=== PATIENT | female | born 1940 | race Caucasian/White ===

== ENCOUNTER → 2016-09-10 | Outpatient (CLI) | payer MEDICARE, BC ==
[~2016-09-10] MED LIST: CENTCHW3 PO; CITRTAB8 PO; DENO60P SQ; MACR100C3 PO; MAGN500T5 PO; OMEGCAP PO; SIMV20TA PO; SIMV5TAB32 PO; ZOCO5TAB PO; ZOFR4TAB3 SL
== END ==
LOC: PLAB 12:08
PROVIDERS: ATTEND Internal Medicine
DX: M85.9 Disorder of bone density and structure, unspecified (principal)
CPT/HCPCS: 36415; 82310

== ENCOUNTER 2016-09-26 21:39 | Emergency (ER) | payer MEDICARE, BC ==
[~2016-09-26] VITALS: Ht 157.5 cm; Wt 60.0 kg
[~2016-09-26 21:39] MED LIST changes: -CENTCHW3 PO; -DENO60P SQ; -MACR100C3 PO; -MAGN500T5 PO; -OMEGCAP PO; -SIMV20TA PO; -ZOCO5TAB PO
[2016-09-26 21:45] VITALS: BP 147/67; PULSE 77; RESP 18; TEMP 98; O2SAT 99
[2016-09-26] MEDS ORDERED: SODIUM CHLOR 0.9% 1000 ML INJ 1,000 ML IV ONE (21:50)
[2016-09-26] MEDS ORDERED: ZOCO5TAB PO (21:51)
[2016-09-26] MEDS ORDERED: CITRTAB8 PO (21:51)
[2016-09-26 21:54] VITALS: RESP 18; O2SAT 97
--- NOTE | 2016-09-26 21:58 | PD ---
HPI Chief Complaint: Medical Clearance Time Seen by Provider: 21:50 Travel History International Travel<30 days: No Contact w/Intl Traveler<30days: No Traveled to known affect area: No History of Present Illness HPI Patient is a 75 year old female who presents to ER with c/o of possible seizure episode. As per patient, she went to her friend's house for dinner and had a glass of wine (which is atypical for her as she never drinks), reports that she asked her friend if she could help his with dishes and when he told her to relax , she decided to go to sleep on the lazy chair. Patient reports that she did fall into a deep sleep and reports that she woke up to her friend and the neighbor at her side. Her friend was concerned as she thought that was having a seizure as he saw patient moving her arms while she was sleeping and reported that it was difficult to arouse her. Patient reports that when she woke up, she remembers snoring and was in a deep sleep, reports that she felt fine and like her normal self after the event. Patient reports no postictal episode, denies any incontinence of urine or stool. Patient reports no headache or dizziness, chest pain or shortness of breath. Patient reports that "I feel fine and really think that I was just sleeping." Patient denies history of seizures in the past, patient with no complaints at this time. PFSH Past Medical History Arthritis: Yes Cardiovascular Problems: Yes (MITRAL VALVE PROLAPSE) High Cholesterol: Yes Diminished Hearing: No Medical other: Yes (HX OF FX SKULL) Musculoskeletal: Yes (OSTEOPOROSIS) Radiation Therapy: Yes (2004) Tetanus Vaccination: Unknown ?: Not Menopausal: Yes Tubal Ligation: Yes Past Surgical History Tonsillectomy: Yes Other Surgery: Yes (LUMPECTOMY) Social History Alcohol Use: Yes (RARE) Tobacco Use: No Substance Use: No Allergies-Medications (Allergen,Severity, Reaction): Coded Allergies: Keflex (Verified Allergy, Severe, FACE SWELLING, 09/26/16) Zithromax (Verified Allergy, Severe, Face swelling, 09/26/16) Reported Meds & Prescriptions Reported Meds & Active Scripts Active Macrodantin (Nitrofurantoin Macrocrystal) 100 Mg Cap 100 Mg PO QID 10 Days Reported Citracal Petites/Vitamin D (Calcium Citrate-Vitamin D) 200-250 Mg-Unit Tab 2 Tab PO BID Zocor (Simvastatin) 5 Mg Tab 5 Mg PO DAILY Review of Systems General / Constitutional: No: Fever Eyes: No: Visual changes HENT: No: Headaches Cardiovascular: No: Chest Pain or Discomfort Respiratory: No: Shortness of Breath Gastrointestinal: No: Abdominal Pain Genitourinary: No: Dysuria Musculoskeletal: No: Pain Skin: No Rash Neurologic: Positive: Seizures (possible seizures), No: Weakness, Slurred Speech Psychiatric: No: Depression Endocrine: No: Polydipsia Hematologic/Lymphatic: No: Easy Bruising Physical Exam Narrative GENERAL: No acute distress, nontoxic SKIN: Focused skin assessment warm/dry. HEAD: Atraumatic. Normocephalic. EYES: Pupils equal and round. No scleral icterus. No injection or drainage. ENT: No nasal bleeding or discharge. Mucous membranes pink and moist. NECK: Trachea midline. No JVD. CARDIOVASCULAR: Regular rate and rhythm. No murmur appreciated. RESPIRATORY: No accessory muscle use. Clear to auscultation. Breath sounds equal bilaterally. GASTROINTESTINAL: Abdomen soft, non-tender, nondistended. Hepatic and splenic margins not palpable. MUSCULOSKELETAL: No obvious deformities. No clubbing. No cyanosis. No edema. NEUROLOGICAL: Awake and alert. No obvious cranial nerve deficits. Motor grossly within normal limits. Normal speech. Cranial nerves II-12 grossly intact with no neurological deficits PSYCHIATRIC: Appropriate mood and affect; insight and judgment normal. Data Data Last Documented VS Vital Signs Date Time Temp Pulse Resp B/P Pulse Ox O2 Delivery O2 Flow Rate FiO2 09/26/16 21:54 18 97 Room Air 09/26/16 21:45 98.0 77 147/67 Orders Complete Blood Count With Diff (09/26/16 21:50) Basic Metabolic Panel (Bmp) (09/26/16 21:50) Electrocardiogram (09/26/16 ) Ecg Monitoring (09/26/16 21:50) Iv Access Insert/Monitor (09/26/16 21:50) Oximetry (09/26/16 21:50) Sodium Chlor 0.9% 1000 Ml Inj (Ns 1000 M (09/26/16 21:50) Sodium Chloride 0.9% Flush (Ns Flush) (09/26/16 22:00) Ua Includes Microscopic (09/26/16 21:50) Nitrofurantoin Monohyd Macrocr (Macrobid (09/26/16 22:45) Labs Laboratory Tests Test 09/26/16 09/26/16 21:50 22:14 White Blood Count 5.9 TH/MM3 Red Blood Count 4.47 MIL/MM3 Hemoglobin 13.7 GM/DL Hematocrit 42.0 % Mean Corpuscular Volume 94.1 FL Mean Corpuscular Hemoglobin 30.7 PG Mean Corpuscular Hemoglobin 32.7 % Concent Red Cell Distribution Width 13.5 % Platelet Count 193 TH/MM3 Mean Platelet Volume 9.3 FL Neutrophils (%) (Auto) 59.2 % Lymphocytes (%) (Auto) 25.8 % Monocytes (%) (Auto) 11.6 % Eosinophils (%) (Auto) 3.0 % Basophils (%) (Auto) 0.4 % Neutrophils # (Auto) 3.5 TH/MM3 Lymphocytes # (Auto) 1.5 TH/MM3 Monocytes # (Auto) 0.7 TH/MM3 Eosinophils # (Auto) 0.2 TH/MM3 Basophils # (Auto) 0.0 TH/MM3 CBC Comment DIFF FINAL Differential Comment Sodium Level 143 MEQ/L Potassium Level 4.1 MEQ/L Chloride Level 107 MEQ/L Carbon Dioxide Level 27.5 MEQ/L Anion Gap 9 MEQ/L Blood Urea Nitrogen 14 MG/DL Creatinine 1.10 MG/DL Estimat Glomerular Filtration 48 ML/MIN Rate Random Glucose 104 MG/DL Calcium Level 8.7 MG/DL Urine Color YELLOW Urine Turbidity CLEAR Urine pH 5.0 Urine Specific [place] 1.019 Urine Protein TRACE mg/dL Urine Glucose (UA) NEG mg/dL Urine Ketones TRACE mg/dL Urine Occult Blood NEG Urine Nitrite NEG Urine Bilirubin NEG Urine Urobilinogen LESS THAN 2.0 MG/DL Urine Leukocyte Esterase LARGE Urine RBC 4 /hpf Urine WBC 81 /hpf Urine Squamous Epithelial <1 /hpf Cells Urine Hyaline Casts 5 /lpf Urine Mucus FEW /lpf Microscopic Urinalysis Comment [facility] Medical Decision Making Medical Screen Exam Complete: Yes Emergency Medical Condition: Yes Interpretation(s) EKG at 2213: NSR at 71bpm, qt/qtc: 371/394, no acute st or t wave changes Vital Signs Date Time Temp Pulse Resp B/P Pulse Ox O2 Delivery O2 Flow Rate FiO2 09/26/16 21:54 18 97 Room Air 09/26/16 21:45 98.0 77 18 147/67 99 Differential Diagnosis Seizure episode, sleeping, electrolyte abnormality, alcohol intoxication, arrhythmia Narrative Course Patient is a 75-year-old female who presents to emergency room for evaluation of possible seizure. Patient reports that she had a glass of wine with her dinner today and took a nap on the lazy boy chair. Patient reports that her friend thought that she may have had a seizure episode as he reported her arms and legs were shaking. Reports the symptoms lasted for about 4-5 minutes. Patient reports that she felt fine after she woke up, no headache or dizziness. That she does think that she fell asleep and was in a deep sleep and did not have a seizure episode. Patient is well-appearing in the emergency room, patient with no complaints. Patient with a normal neurological exam. Plan to obtain lab work, will monitor her on the salvage clerk. Though seizure episode is a possibility, I do think that this is unlikely and she may have been sleeping and also had alcohol on board which she is not used to having. Patient is agreeable to monitoring in the ER. Vital Signs Date Time Temp Pulse Resp B/P Pulse Ox O2 Delivery O2 Flow Rate FiO2 09/26/16 21:54 18 97 Room Air 09/26/16 21:45 98.0 77 18 99 Laboratory Tests Test 09/26/16 09/26/16 21:50 22:14 White Blood Count 5.9 TH/MM3 (4.0-11.0) Red Blood Count 4.47 MIL/MM3 (4.00-5.30) Hemoglobin 13.7 GM/DL (11.6-15.3) Hematocrit 42.0 % (35.0-46.0) Mean Corpuscular Volume 94.1 FL (80.0-100.0) Mean Corpuscular Hemoglobin 30.7 PG (27.0-34.0) Mean Corpuscular Hemoglobin 32.7 % Concent (32.0-36.0) Red Cell Distribution Width 13.5 % (11.6-17.2) Platelet Count 193 TH/MM3 (150-450) Mean Platelet Volume 9.3 FL (7.0-11.0) Neutrophils (%) (Auto) 59.2 % (16.0-70.0) Lymphocytes (%) (Auto) 25.8 % (9.0-44.0) Monocytes (%) (Auto) 11.6 % (0.0-8.0) Eosinophils (%) (Auto) 3.0 % (0.0-4.0) Basophils (%) (Auto) 0.4 % (0.0-2.0) Neutrophils # (Auto) 3.5 TH/MM3 (1.8-7.7) Lymphocytes # (Auto) 1.5 TH/MM3 (1.0-4.8) Monocytes # (Auto) 0.7 TH/MM3 (0-0.9) Eosinophils # (Auto) 0.2 TH/MM3 (0-0.4) Basophils # (Auto) 0.0 TH/MM3 (0-0.2) CBC Comment DIFF FINAL Differential Comment Sodium Level 143 MEQ/L (136-145) Potassium Level 4.1 MEQ/L (3.5-5.1) Chloride Level 107 MEQ/L (98-107) Carbon Dioxide Level 27.5 MEQ/L (21.0-32.0) Anion Gap 9 MEQ/L (5-15) Blood Urea Nitrogen 14 MG/DL (7-18) Creatinine 1.10 MG/DL (0.50-1.00) Estimat Glomerular Filtration 48 ML/MIN (>89) Rate Random Glucose 104 MG/DL (74-106) Calcium Level 8.7 MG/DL (8.5-10.1) Urine Color YELLOW (YELLW/STRAW) Urine Turbidity CLEAR (CLEAR) Urine pH 5.0 (5.0-8.5) Urine Specific [place] 1.019 (1.002-1.035) Urine Protein TRACE mg/dL (NEG-TRACE) Urine Glucose (UA) NEG mg/dL (NEG) Urine Ketones TRACE mg/dL (NEG) Urine Occult Blood NEG (NEG) Urine Nitrite NEG (NEG) Urine Bilirubin NEG (NEG) Urine Urobilinogen LESS THAN 2.0 MG/DL (LESS THAN 2.0) Urine Leukocyte Esterase LARGE (NEG) Urine RBC 4 /hpf (0-3) Urine WBC 81 /hpf (0-5) Urine Squamous Epithelial <1 /hpf (0-5) Cells Urine Hyaline Casts 5 /lpf (RARE) Urine Mucus FEW /lpf (OCC) Microscopic Urinalysis Comment Patient re-evaluated, patient reports that she is feeling well, reports no complaints. Patient reports "I feel fine, I really think I was sleeping." I reviewed all labs and studies with patient in detail. She does have a UTI on UA. Plan to treat for uti. Discussed need to follow up with neurology as well as pcp for further testing as I cannot rule out seizure episode. She will return to ER if symptoms return. Patient appreciative of care Diagnosis Primary Impression: UTI (urinary tract infection) Qualified Code: N30.01 - Acute cystitis with hematuria Additional Impression: Possible seizure episode Referrals: Geovany Sr PhD MD Patient Instructions: General Instructions Additional Instructions: Please follow-up with your primary care doctor in 2-3 days Please follow-up with neurologist as soon as possible Returns to emergency room as needed or symptoms return Please follow-up with all cultures from today Med/Other Pt SpecificInfo: Prescription(s) given Scripts Nitrofurantoin Macrocrystal (Macrodantin)100 Mg Evi008 Mg PO QID 10 Days Ref 0 Prov:Sendy Galo DO 09/26/16 Sendy Galo DO September 26, 2016 21:58
[2016-09-26] MEDS ORDERED: SODIUM CHLORIDE 0.9% FLUSH 10 ML FLUSH IVF PRN (22:00)
[2016-09-26 22:09] LABS: AUTOMATED NEUTROPHIL # 3.5 TH/MM3 (1.8-7.7); BASOPHIL % 0.4 % (0.0-2.0); EOSINOPHIL # 0.2 TH/MM3 (0-0.4); HEMO FLAGS DIFF FINAL; LYMPH % 25.8 % (9.0-44.0); LYMPHOCYTE # 1.5 TH/MM3 (1.0-4.8); MEAN CELL VOLUME 94.1 FL (80.0-100.0); MEAN CORPUSCULAR HEMOGLOBIN 30.7 PG (27.0-34.0); MEAN CORPUSCULAR HGB CONC 32.7 % (32.0-36.0); MONO % 11.6 % (0.0-8.0); NEUT % 59.2 % (16.0-70.0); PLATELET COUNT 193 TH/MM3 (150-450); RED BLOOD COUNT 4.47 MIL/MM3 (4.00-5.30); RED CELL DISTRIBUTION WIDTH 13.5 % (11.6-17.2); WHITE BLOOD COUNT 5.9 TH/MM3 (4.0-11.0)
[2016-09-26 22:26] LABS: BLOOD, URINE NEG (NEG); GLUCOSE,URINE NEG (NEG); HYALINE CAST, URINE 5 /lpf (RARE); KETONE, URINE TRACE mg/dL (NEG); MUCUS URINE FEW /lpf (OCC); NITRITE,URINE NEG (NEG); SQUAMOUS EPITHELIAL CELL URINE <1 /hpf (0-5); URINE COLOR YELLOW (YELLW/STRAW)
[2016-09-26 22:34] LABS: BICARBONATE 27.5 MEQ/L (21.0-32.0)
[2016-09-26 22:35] LABS: POTASSIUM 4.1 MEQ/L (3.5-5.1)
[2016-09-26] MEDS ORDERED: NITROFURANTOIN MONOHYD MACROCR 100 MG CAP PO ONE (22:45)
[2016-09-26] MEDS ORDERED: MACR100C3 PO (23:12)
[2016-09-26 23:36] VITALS: BP 154/71; PULSE 78; RESP 18; O2SAT 100
--- NOTE | 2016-09-27 17:12 | EKG ---
Date Performed: 09/26/2016 Time Performed: 22:13:07 PTAGE: 75 years EKG: Sinus rhythm POSSIBLE RIGHT VENTRICULAR CONDUCTION DELAY BORDERLINE ECG PREVIOUS TRACING : 08/19/2010 16.39 Compared to prior tracing no significant change DOCTOR: Hermes Ko Interpretating Date/Time 09/27/2016 17:10:21
[2016-10-02] MEDS ORDERED: SIMV20TA PO (15:22)
[2016-10-02] MEDS ORDERED: MAGN500T5 PO (15:25)
[2016-10-02] MEDS ORDERED: OMEGCAP PO (15:25)
[2016-10-02] MEDS ORDERED: CENTCHW3 PO (15:31)
[2016-10-02] MEDS ORDERED: DENO60P SQ (15:32)
== END 2016-09-26 23:35 | disposition home or self-care (01) ==
LOC: NEPC 21:39
DX: N30.01 Acute cystitis with hematuria (principal)
CPT/HCPCS: 80048; 81001; 85025; 93005; 96360; 99284; J7030

== ENCOUNTER → 2016-12-05 | Outpatient (CLI) | payer MEDICARE, BC ==
[~2016-12-05] MED LIST changes: +CENTCHW3 PO; +DENO60P SQ; +MACR100C3 PO; +MAGN500T5 PO; +OMEGCAP PO; +SIMV20TA PO; -SIMV5TAB32 PO; -ZOFR4TAB3 SL
[2016-12-05 13:16] LABS: AUTOMATED NEUTROPHIL # 2.2 TH/MM3 (1.8-7.7); BASOPHIL % 0.6 % (0.0-2.0); EOSINOPHIL # 0.1 TH/MM3 (0-0.4); EOSINOPHIL % 2.2 % (0.0-4.0); HEMATOCRIT 42.7 % (35.0-46.0); HEMO FLAGS DIFF FINAL; LYMPH % 26.9 % (9.0-44.0); MEAN CELL VOLUME 93.8 FL (80.0-100.0); MEAN CORPUSCULAR HEMOGLOBIN 31.9 PG (27.0-34.0); MONO % 10.5 % (0.0-8.0); NEUT % 59.8 % (16.0-70.0); PLATELET COUNT 216 TH/MM3 (150-450); RED BLOOD COUNT 4.55 MIL/MM3 (4.00-5.30); RED CELL DISTRIBUTION WIDTH 13.3 % (11.6-17.2); WHITE BLOOD COUNT 3.7 TH/MM3 (4.0-11.0)
[2016-12-05 13:32] LABS: ANION GAP 7 MEQ/L (5-15); AST (GOT) 20 U/L (15-37); BICARBONATE 31.5 MEQ/L (21.0-32.0); BLOOD UREA NITROGEN 13 MG/DL (7-18); CHLORIDE 104 MEQ/L (98-107); GLOMERULAR FILTRATION RATE 64 ML/MIN (>89); GLUCOSE,FASTING 77 MG/DL (74-99); POTASSIUM 4.4 MEQ/L (3.5-5.1); SODIUM (NA) 142 MEQ/L (136-145)
[2016-12-05 13:40] LABS: BLOOD, URINE NEG (NEG); COMMENT (UR) CULT NOT INDICATED; CULTURE IF INDICATED CULT NOT INDICATED; GLUCOSE,URINE NEG (NEG); HYALINE CAST, URINE 2 /lpf (RARE); KETONE, URINE NEG (NEG); MUCUS URINE FEW /lpf (OCC); NITRITE,URINE NEG (NEG); PH, URINE 5.5 (5.0-8.5); SQUAMOUS EPITHELIAL CELL URINE <1 /hpf (0-5); URINE COLOR YELLOW (YELLW/STRAW)
[2016-12-05 13:59] LABS: ALKALINE PHOSPHATASE 48 U/L (45-117); ALT (GPT) 22 U/L (10-53); FREE T4 1.01 NG/DL (0.76-1.46); HDL CHOLESTEROL 82.1 MG/DL (40.0-60.0); LDL CHOLESTEROL 88 MG/DL (0-99); TOTAL BILIRUBIN ADULT 0.6 MG/DL (0.2-1.0)
== END ==
LOC: PLAB 08:44
PROVIDERS: ATTEND Internal Medicine
DX: E78.5 Hyperlipidemia, unspecified (principal); R53.83 Other fatigue; M81.0 Age-related osteoporosis without current pathological fracture; Z79.899 Other long term (current) drug therapy; Z12.11 Encounter for screening for malignant neoplasm of colon
CPT/HCPCS: 36415; 80053; 80061; 81001; 82607; 82652; 84439; 84443; 84481; 85025

== ENCOUNTER → 2017-04-09 | Outpatient (CLI) | payer MEDICARE, BC | LOC: PLAB 10:45 | PROVIDERS: ATTEND Internal Medicine | DX: M85.9 Disorder of bone density and structure, unspecified (principal) | CPT/HCPCS: 36415; 82310 ==

== ENCOUNTER → 2017-09-11 | Outpatient (CLI) | payer MEDICARE, BC ==
[~2017-09-11] MED LIST changes: -MACR100C3 PO
== END ==
LOC: PLAB 10:35
PROVIDERS: ATTEND Internal Medicine
DX: M85.9 Disorder of bone density and structure, unspecified (principal)
CPT/HCPCS: 36415; 82310